=== PATIENT | male | born 1970 | race Two or more races ===

== ENCOUNTER 2016-12-07 18:02 | Emergency (ER) | payer OTHER ==
[~2016-12-07] VITALS: Ht 167.6 cm; Wt 96.6 kg
[~2016-12-07 18:02] MED LIST: BENAZEPRIL HYDR20 M1 PO; CIPRO500 MG PO; LOTENSIN10 MG PO; ZES20 PO
[2016-12-07 20:01] VITALS: BP 180/115
[2016-12-07 20:30] LABS: UA SPECIFIC GRAVITY 1.025 (1.005-1.035); microscopic required? YES; urine erythrocyte 2+ (NEGATIVE)
== END 2016-12-07 20:01 | disposition home or self-care (01) ==
LOC: ED 18:02
PROVIDERS: Emergency Medicine
DX: N45.1 Epididymitis (principal); I10 Essential (primary) hypertension; M10.9 Gout, unspecified; Z79.899 Other long term (current) drug therapy; Z87.442 Personal history of urinary calculi
CPT/HCPCS: 87491; 87591; J1885; Q0092

== ENCOUNTER 2016-12-11 13:16 | Inpatient (IN) | payer OTHER ==
[~2016-12-11] VITALS: Ht 167.6 cm; Wt 96.6 kg
[2016-12-11 15:27] LABS: BASOPHIL % 0.4 % (0-2); PLATELET COUNT 142 x10^3mcL (130-400)
[2016-12-11 15:32] LABS: RED CELL DISTRIBUTION WIDTH 14.8 % (11.5-14.5)
[2016-12-11 15:44] LABS: UA SPECIFIC GRAVITY 1.025 (1.005-1.035); microscopic required? YES; urine erythrocyte 1+ (NEGATIVE)
[2016-12-11 15:53] LABS: ALBUMIN 3.4 g/dL (3.4-5.0); BILIRUBIN TOTAL 0.5 mg/dL (0.20-1.00); CALCIUM 8.8 mg/dL (8.5-10.1); CARBON DIOXIDE 27.3 mmol/L (21-32); CREATININE SERUM 3.5 mg/dL (0.7-1.3); TOTAL PROTEIN, SERUM 7.6 g/dL (6.4-8.2)
[2016-12-11 15:55] LABS: POTASSIUM SERUM 2.7 mmol/L (3.5-5.1)
[2016-12-11 17:48] VITALS: BP 171/121
[2016-12-11 18:06] LABS: CHOLESTEROL/HDL RATIO 5.1; T3 TOTAL 1.13 ng/mL
[2016-12-11 18:14] LABS: FREE T4 1.28 ng/dL (0.76-1.46); FREE THYROXINE INDEX 3.5 ug/dL (1.4-4.5); T4(THYROXINE) 9.3 ug/dL (4.7-13.3)
[2016-12-11 18:27] LABS: AMPHETAMINE QUAL UR NONE DETECTED (NEG <=1000)
[2016-12-11 21:17] LABS: CALCIUM 8.4 mg/dL (8.5-10.1); CARBON DIOXIDE 26.3 mmol/L (21-32); CREATININE SERUM 3.6 mg/dL (0.7-1.3); MAGNESIUM 1.9 mg/dL (1.8-2.4); PHOSPHOROUS 3.7 mg/dL (2.5-4.9); POTASSIUM SERUM 3.3 mmol/L (3.5-5.1)
[2016-12-11 22:31] VITALS: BP 154/97
[2016-12-12 06:48] VITALS: BP 154/107
[2016-12-12 07:00] LABS: CALCIUM 8.9 mg/dL (8.5-10.1); CARBON DIOXIDE 25.6 mmol/L (21-32); CREATININE SERUM 3.3 mg/dL (0.7-1.3); MAGNESIUM 1.9 mg/dL (1.8-2.4); PHOSPHOROUS 3.6 mg/dL (2.5-4.9); POTASSIUM SERUM 3.7 mmol/L (3.5-5.1)
[2016-12-12 07:26] LABS: BASOPHIL % 0.6 % (0-2); PLATELET COUNT 145 x10^3mcL (130-400)
[2016-12-12 07:28] LABS: RED CELL DISTRIBUTION WIDTH 14.9 % (11.5-14.5)
[2016-12-12 10:00] VITALS: BP 169/107
[2016-12-12 17:17] VITALS: BP 145/85
[2016-12-12 21:00] VITALS: BP 162/89
[2016-12-13] VITALS (7 sets, daily range): BP systolic 152–172; BP diastolic 98–120
[2016-12-13 06:14] LABS: BASOPHIL % 0.3 % (0-2); PLATELET COUNT 143 x10^3mcL (130-400)
[2016-12-13 06:21] LABS: CALCIUM 8.6 mg/dL (8.5-10.1); CARBON DIOXIDE 22.6 mmol/L (21-32); POTASSIUM SERUM 3.3 mmol/L (3.5-5.1)
[2016-12-13 06:57] LABS: RED CELL DISTRIBUTION WIDTH 14.6 % (11.5-14.5)
[2016-12-13] MEDS ORDERED: BENAZEPRIL HYDR40 M1 PO (11:00)
[2016-12-13] MEDS ORDERED: METOPROLOL TART25 M1 PO (15:30)
[2016-12-13] MEDS ORDERED: LAC PO (15:36)
[2016-12-13] MEDS ORDERED: CEFTIN500 MG PO (15:36)
[2016-12-13] MEDS ORDERED: ZITHROMAX Z-PA250 MG PO (16:01)
== END 2016-12-13 17:20 | disposition home or self-care (01) | DRG 501 ==
LOC: ED 13:16 → MU 16:29 → DU 16:29 → MU 12-12 06:17
PROVIDERS: Specialist; ADMIT Family Medicine
DX: N45.3 Epididymo-orchitis (principal); N17.0 Acute kidney failure with tubular necrosis; N39.0 Urinary tract infection, site not specified; M10.9 Gout, unspecified; N43.3 Hydrocele, unspecified; E78.5 Hyperlipidemia, unspecified; R31.9 Hematuria, unspecified; E87.6 Hypokalemia; Z68.34 Body mass index [BMI] 34.0-34.9, adult; Z87.442 Personal history of urinary calculi; I12.9 Hypertensive chronic kidney disease with stage 1 through stage 4 chronic kidney disease, or unspecified chronic kidney disease; N18.9 Chronic kidney disease, unspecified; D64.9 Anemia, unspecified
CPT/HCPCS: 80307; 82962; 83880; 84439; J0360; J0694; J0696; J3480; J7030; Q0092

== ENCOUNTER 2017-01-11 04:25 | Emergency (ER) | payer OTHER ==
[~2017-01-11 04:25] MED LIST changes: +BENAZEPRIL HYDR40 M1 PO; +CEFTIN500 MG PO; +LAC PO; +METOPROLOL TART25 M1 PO; +ZITHROMAX Z-PA250 MG PO
[2017-01-11 05:12] VITALS: BP 156/95
== END 2017-01-11 05:12 | disposition home or self-care (01) ==
LOC: ED 04:25
DX: M54.41 Lumbago with sciatica, right side (principal); I10 Essential (primary) hypertension
CPT/HCPCS: J1885

== ENCOUNTER 2017-02-12 11:07 | Emergency (ER) | payer OTHER ==
[2017-02-12 11:11] VITALS: BP 150/107
== END 2017-02-12 13:22 | disposition home or self-care (01) ==
LOC: ED 11:07
DX: R51 Headache (principal); V49.9XXA Car occupant (driver) (passenger) injured in unspecified traffic accident, initial encounter; Y93.89 Activity, other specified; Y99.8 Other external cause status; Y92.89 Other specified places as the place of occurrence of the external cause

== ENCOUNTER 2017-04-14 03:22 | Emergency (ER) | payer OTHER ==
[2017-04-14 05:12] VITALS: BP 155/91
== END 2017-04-14 05:12 | disposition home or self-care (01) ==
LOC: ED 03:22
DX: M10.062 Idiopathic gout, left knee (principal); M10.072 Idiopathic gout, left ankle and foot; M10.071 Idiopathic gout, right ankle and foot; Z79.899 Other long term (current) drug therapy
CPT/HCPCS: J2270; Q0162